=== PATIENT | female | born 1980 | race Caucasian/White ===

== ENCOUNTER 2016-05-29 00:16 | Emergency (ER) | payer BC ==
[2016-05-29 00:30] VITALS: BP 119/67
--- NOTE | 2016-05-29 01:06 | ED ---
Throat Pain/Nasal Congestion - HPI Summary HPI Summary: 35 F present with sore throat for 3 days. She states that she was seen at urgent care yesterday for this same pain and strept throat was negative. She states that today she noticed some white spots on her tonsils. She has taken multiple ibuprofen and tyenlol for the pain and it is not helping. She has tried cough drops and she states that they make the pain more intense. She denies any change in voice or difficulty swallowing. She admits to a dry cough and post nasal drip and nasal congestion. She denies any fever or headache or sinus pressure. She states she felt tonight and last night were her heart skips a beat. It last for a second and resolves. She has been worked up for this in the past and they told her everything was normal she just has anxiety. She denies any chest pain or SOB with the symptoms. - History of Current Complaint Chief Complaint: EDThroatPain Time Seen by Provider: 05/29/16 00:38 - Allergies/Home Medications Allergies/Adverse Reactions: Allergies Allergy/AdvReac Type Severity Reaction Status Date / Time No Known Allergies Allergy Verified 03/15/14 15:10 PMH/Surg Hx/FS Hx/Imm Hx Endocrine/Hematology History: Denies: Hx Anticoagulant Therapy Respiratory History: Reports: Hx Asthma Infectious Disease History: No Infectious Disease History: Denies: Traveled Outside the [place] in Last 30 Days - Family History Known Family History: Positive: Cardiac Disease - Social History Alcohol Use: Occasionally Substance Use Type: Reports: None Smoking Status (MU): Never Smoked Tobacco Review of Systems Negative: Fever Positive: Sore Throat, Nasal Discharge Negative: Chest Pain Negative: Shortness Of Breath Negative: Headache All Other Systems Reviewed And Are Negative: Yes Physical Exam Triage Information Reviewed: Yes Vital Signs On Initial Exam: Initial Vitals Temp Pulse Resp BP Pulse Ox 97.6 F 70 18 119/67 100 05/29/16 00:26 05/29/16 00:26 05/29/16 00:26 05/29/16 00:05/29/16 00:26 Vital Signs Reviewed: Yes Appearance: Positive: Well-Appearing Skin: Positive: Warm, Dry Head/Face: Positive: Normal Head/Face Inspection Eyes: Positive: Normal, EOMI, MARLENE, Conjunctiva Clear ENT: Positive: Pharyngeal erythema, TMs normal. Negative: Tonsillar swelling, Tonsillar exudate, Trismus, Muffled/hoarse voice Neck: Positive: Supple, Nontender, No Lymphadenopathy Respiratory/Lung Sounds: Positive: Clear to Auscultation, Breath Sounds Present Cardiovascular: Positive: Normal, RRR Diagnostics - Vital Signs Vital Signs Temp Pulse Resp BP Pulse Ox 05/29/16 00:26 97.6 F 70 18 119/67 100 - Laboratory Lab Results: Lab Results 05/29/16 Range/Units 00:43 Group A Strep Rapid Negative (Negative) Lab Statement: Any lab studies that have been ordered have been reviewed, and results considered in the medical decision making process. - EKG No standard instances Cardiac Rate: Bradycardia EKG Rhythm: Sinus Rhythm ST Segment: Normal EENT Course/Dx - Course Course Of Treatment: 35 F presents with sore throat for 3 days. seen at urgent care and strept was negative. said saw spots on tonsils I do not appreciate any , repeat strept and it was negative, does not have trimsus, swelling of neck, difficulty swallowing, drooling, or fever, EKG was normal and palpiations resolved discussed likely due to anxiety as had work up for this in the past, discussed adding a narcoctic for pain and patient declined, will add magic mouth wash patient agrees with plan - Differential Diagnoses Differential Diagnoses: Pharyngitis, Sinusitis, URI/Bronchitis - Diagnoses Provider Diagnoses: Pharyngitis, Palpitation Discharge - Discharge Plan Condition: Good Disposition: HOME Prescriptions: Magic Mouth Was-SUJEY/MAAL/LIDO* 5 ml SWISH SPIT QID #100 ml Patient Education Materials: Pharyngitis (ED) Referrals: Annie Kauffman NP [Primary Care Provider] - Additional Instructions: Magic mouthwash can use 4x a day Take Tylenol or ibuprofen for pain Use saline spray in nose as much as needed Use humidifier in room or can use warm water in bowls Can gargle salt water Can use cough drops or products such as cloraseptic spray Follow up with primary care physician if no improvement in 5 days Return to ED if develop fever, inability to swallow, or difficulty breathing or any new or worsening symptoms
[2016-05-29] MEDS ORDERED: oxyCODONE/Acetamin 5/325 MG* TAB PO ONE (01:14)
== END 2016-05-29 01:22 | disposition home or self-care (01) ==
LOC: ED 00:16
DX: J02.9 Acute pharyngitis, unspecified (principal); R00.2 Palpitations
CPT/HCPCS: 87651; 93005; 99282; A9270-GY

== ENCOUNTER 2016-09-07 18:44 | Emergency (ER) | payer BC ==
[2016-09-07] MEDS ORDERED: NS 0.9% 1000 ML* 2,000 ML IV ONE (20:03)
[2016-09-07] MEDS ORDERED: Ondansetron INJ* 2 MG/ML VIAL IV ONE (20:04)
[2016-09-07 20:24] LABS: Hematocrit 43 % (35-47); Hemoglobin 14.3 g/dl (12.0-16.0); Mean Corpuscular HGB Conc 34 g/dl (31-36); Mean Corpuscular Hemoglobin 31 pg (27-31); Mean Corpuscular Volume 91 fL (80-97); Mean Platelet Volume 9 um3 (7.4-10.4); Red Blood Count 4.66 10^6/ul (4.0-5.4); Red Cell Distribution Width 12 % (10.5-15); White Blood Count 10.4 10^3/ul (3.5-10.8)
[2016-09-07 20:27] LABS: Urine Bacteria 1+ (Absent); Urine Bilirubin Negative (Negative); Urine Glucose Negative (Negative); Urine Nitrite Negative (Negative)
[2016-09-07 20:40] LABS: ALT 10 U/L (7-52); AST 15 U/L (13-39); Albumin 4.1 g/dL (3.2-5.2); Alkaline Phosphatase 54 U/L (34-104); Anion Gap 7 mmol/L (2-11); BUN/Creatinine Ratio 9.6 (8-20); Blood Urea Nitrogen 7 mg/dL (6-24); C Reactive Protein 19.54 mg/L (< 5.00); CO2 Carbon Dioxide 23 mmol/L (22-32); Calcium 9.1 mg/dL (8.6-10.3); Chloride 106 mmol/L (101-111); EGFR African American 117.4 (>60); EGFR Non-African American 91.3 (>60); Globulin 2.9 g/dL (2-4); Glucose 94 mg/dL (70-100); Lipase 25 U/L (11.0-82.0); Magnesium 1.8 mg/dL (1.9-2.7); Potassium 3.4 mmol/L (3.5-5.0); Sodium 136 mmol/L (133-145)
--- NOTE | 2016-09-07 21:12 | RAD ---
Indication: Fever. Recent travel to [facility]. Gastric sensitivity, pain, diarrhea. Headache. Dehydration. Comparison: None. Technique: Upright AP 2049 hours Report: Clear lungs and pleural spaces. The heart, pulmonary vasculature, and mediastinal contours are unremarkable. Negative for free air beneath the diaphragm. Unremarkable osseous structures and soft tissue contours. IMPRESSION: No evidence for acute intrathoracic disease.
--- NOTE | 2016-09-07 22:39 | ED ---
Chris Erickson Janilya, scribed for Stefania Pratt MD on 09/07/16 at 2022 . Abdominal Pain/Female - HPI Summary HPI Summary: A 36 y/o female came in to [facility] presenting w/ a gradual onset of constant abd pain for about a week. Pt recently traveled to [facility] from 08/24/2016 to 2016. Since then, pt has been experiencing these Sx. Her abd pain is described as abd cramping. Pt denies this pain at this time. She also reports diarrhea. Pt had one episode of diarrhea today. At most, pt has 3 episodes. Yesterday she got chills and fever. In addition, she reports fatigue, sore throat, runny nose. She took NyQuil last night, however, she did not improve, hence her visit to the ED today. - History of Current Complaint Chief Complaint: EDGeneral Stated Complaint: ABD PAIN/FEVER/WEAKNESS Time Seen by Provider: 09/07/16 20:01 Hx Obtained From: Patient Hx Last Menstrual Period: 02/28/14 Onset/Duration: Gradual Onset, Lasting Days, Still Present Timing: Constant Severity Initially: Moderate Severity Currently: Moderate Pain Intensity: 4 Pain Scale Used: 0-10 Numeric Location: Diffuse Radiates: No Character: Cramping Aggravating Factor(s): Nothing Alleviating Factor(s): Nothing Associated Signs and Symptoms: Positive: Fever, Nausea, Diarrhea Allergies/Adverse Reactions: Allergies Allergy/AdvReac Type Severity Reaction Status Date / Time No Known Allergies Allergy Verified 09/07/16 19:47 PMH/Surg Hx/FS Hx/Imm Hx Previously Healthy: Yes Endocrine/Hematology History: Denies: Hx Anticoagulant Therapy Respiratory History: Reports: Hx Asthma - Immunization History Date of Tetanus Vaccine: utd Date of Influenza Vaccine: none Infectious Disease History: No Infectious Disease History: Reports: Traveled Outside the [place] in Last 30 Days - Family History Known Family History: Positive: Cardiac Disease - Social History Occupation: Employed Full-time Lives: With Family Alcohol Use: Occasionally Substance Use Type: Reports: None Smoking Status (MU): Never Smoked Tobacco Review of Systems Positive: Fever, Chills, Fatigue Positive: Sore Throat, Nasal Discharge Positive: Abdominal Pain, Diarrhea Positive: Headache All Other Systems Reviewed And Are Negative: Yes Physical Exam Triage Information Reviewed: Yes Vital Signs On Initial Exam: Initial Vitals Temp Pulse Resp BP Pulse Ox 98.8 F 110 20 107/71 100 09/07/16 18:55 09/07/16 18:55 09/07/16 18:55 09/07/16 18:55 09/07/16 18:55 Vital Signs Reviewed: Yes Appearance: Positive: Well-Appearing, No Pain Distress Skin: Positive: Warm, Skin Color Reflects Adequate Perfusion Eyes: Positive: EOMI, MARLENE ENT: Positive: Pharynx normal, Nasal drainage, TMs normal Neck: Positive: Supple, Nontender Respiratory/Lung Sounds: Positive: Clear to Auscultation, Breath Sounds Present. Negative: Rales, Rhonchi, Wheezes Cardiovascular: Positive: RRR, Pulses are Symmetrical in both Upper and Lower Extremities. Negative: Murmur, Rub, Other - no gallops Abdomen Description: Positive: Nontender, Soft. Negative: Distended, Guarding, Other: - no rebound Bowel Sounds: Positive: Present Musculoskeletal: Positive: Strength/ROM Intact. Negative: Edema Left, Edema Right Neurological: Positive: Sensory/Motor Intact, Alert, Oriented to Person Place, Time, CN Intact II-III Psychiatric: Positive: Affect/Mood Appropriate - Zeny Coma Scale Coma Scale Total: 15 Diagnostics - Vital Signs Vital Signs Temp Pulse Resp BP Pulse Ox 09/07/16 19:41 99.0 F 87 14 98/53 99 09/07/16 18:55 98.8 F 110 20 107/71 100 - Laboratory Lab Results: Lab Results 09/07/16 09/07/16 09/07/16 Range/Units 20:10 20:10 20:10 WBC 10.4 (3.5-10.8) 10^3/ul RBC 4.66 (4.0-5.4) 10^6/ul Hgb 14.3 (12.0-16.0) g/dl Hct 43 (35-47) % MCV 91 (80-97) fL MCH 31 (27-31) pg MCHC 34 (31-36) g/dl RDW 12 (10.5-15) % Plt Count 212 (150-450) 10^3/ul MPV 9 (7.4-10.4) um3 Neut % (Auto) 81.1 (38-83) % Lymph % (Auto) 7.2 L (25-47) % Wright % (Auto) 10.1 H (1-9) % Eos % (Auto) 1.0 (0-6) % Baso % (Auto) 0.6 (0-2) % Absolute Neuts (auto) 8.4 H (1.5-7.7) 10^3/ul Absolute Lymphs (auto) 0.7 L (1.0-4.8) 10^3/ul Absolute Monos (auto) 1.1 H (0-0.8) 10^3/ul Absolute Eos (auto) 0.1 (0-0.6) 10^3/ul Absolute Basos (auto) 0.1 (0-0.2) 10^3/ul Absolute Nucleated RBC 0.01 10^3/ul Nucleated RBC % 0 Sodium 136 (133-145) mmol/L Potassium 3.4 L (3.5-5.0) mmol/L Chloride 106 (101-111) mmol/L Carbon Dioxide 23 (22-32) mmol/L Anion Gap 7 (2-11) mmol/L BUN 7 (6-24) mg/dL Creatinine 0.73 (0.51-0.95) mg/dL Est GFR ( Amer) 117.4 (>60) Est GFR (Non-Af Amer) 91.3 (>60) BUN/Creatinine Ratio 9.6 (8-20) Glucose 94 (70-100) mg/dL Lactic Acid (0.5-2.0) mmol/L Calcium 9.1 (8.6-10.3) mg/dL Magnesium 1.8 L (1.9-2.7) mg/dL Total Bilirubin 0.60 (0.2-1.0) mg/dL AST 15 (13-39) U/L ALT 10 (7-52) U/L Alkaline Phosphatase 54 (34-104) U/L C-Reactive Protein 19.54 H (< 5.00) mg/L Total Protein 7.0 (6.4-8.9) g/dL Albumin 4.1 (3.2-5.2) g/dL Globulin 2.9 (2-4) g/dL Albumin/Globulin Ratio 1.4 (1-3) Lipase 25 (11.0-82.0) U/L Beta HCG, Quant < 0.60 mIU/mL Urine Color Yellow Urine Appearance Clear Urine pH 6.0 (5-9) Ur Specific [place] 1.009 L (1.010-1.030) Urine Protein Negative (Negative) Urine Ketones Negative (Negative) Urine Blood 3+ H (Negative) Urine Nitrate Negative (Negative) Urine Bilirubin Negative (Negative) Urine Urobilinogen Negative (Negative) Ur Leukocyte Esterase Trace H (Negative) Urine WBC (Auto) Trace(0-5/hpf) (Absent) Urine RBC (Auto) Trace(0-2/hpf) (Absent) Ur Squamous Epith Cells Present H (Absent) Urine Bacteria 1+ H (Absent) Urine Glucose Negative (Negative) Influenza A (Rapid) (Negative) Influenza B (Rapid) (Negative) 09/07/16 09/07/16 Range/Units 20:10 21:24 WBC (3.5-10.8) 10^3/ul RBC (4.0-5.4) 10^6/ul Hgb (12.0-16.0) g/dl Hct (35-47) % MCV (80-97) fL MCH (27-31) pg MCHC (31-36) g/dl RDW (10.5-15) % Plt Count (150-450) 10^3/ul MPV (7.4-10.4) um3 Neut % (Auto) (38-83) % Lymph % (Auto) (25-47) % Wright % (Auto) (1-9) % Eos % (Auto) (0-6) % Baso % (Auto) (0-2) % Absolute Neuts (auto) (1.5-7.7) 10^3/ul Absolute Lymphs (auto) (1.0-4.8) 10^3/ul Absolute Monos (auto) (0-0.8) 10^3/ul Absolute Eos (auto) (0-0.6) 10^3/ul Absolute Basos (auto) (0-0.2) 10^3/ul Absolute Nucleated RBC 10^3/ul Nucleated RBC % Sodium (133-145) mmol/L Potassium (3.5-5.0) mmol/L Chloride (101-111) mmol/L Carbon Dioxide (22-32) mmol/L Anion Gap (2-11) mmol/L BUN (6-24) mg/dL Creatinine (0.51-0.95) mg/dL Est GFR ( Amer) (>60) Est GFR (Non-Af Amer) (>60) BUN/Creatinine Ratio (8-20) Glucose (70-100) mg/dL Lactic Acid 0.7 (0.5-2.0) mmol/L Calcium (8.6-10.3) mg/dL Magnesium (1.9-2.7) mg/dL Total Bilirubin (0.2-1.0) mg/dL AST (13-39) U/L ALT (7-52) U/L Alkaline Phosphatase (34-104) U/L C-Reactive Protein (< 5.00) mg/L Total Protein (6.4-8.9) g/dL Albumin (3.2-5.2) g/dL Globulin (2-4) g/dL Albumin/Globulin Ratio (1-3) Lipase (11.0-82.0) U/L Beta HCG, Quant mIU/mL Urine Color Urine Appearance Urine pH (5-9) Ur Specific [place] (1.010-1.030) Urine Protein (Negative) Urine Ketones (Negative) Urine Blood (Negative) Urine Nitrate (Negative) Urine Bilirubin (Negative) Urine Urobilinogen (Negative) Ur Leukocyte Esterase (Negative) Urine WBC (Auto) (Absent) Urine RBC (Auto) (Absent) Ur Squamous Epith Cells (Absent) Urine Bacteria (Absent) Urine Glucose (Negative) Influenza A (Rapid) Negative (Negative) Influenza B (Rapid) Negative (Negative) Result Diagrams: 09/07/16 20:10 09/07/16 20:10 Lab Statement: Any lab studies that have been ordered have been reviewed, and results considered in the medical decision making process. Re-Evaluation - Re-Evaluation First Eval Re-Evaluation Time: 22:20 Change: Improved Second Eval Re-Evaluation Time: 22:35 Change: Improved Abdominal Pain Fem Course/Dx - Course Course Of Treatment: A 36 y/o female came in to [facility] presenting w/ a gradual onset of constant abd pain for about a week. Pt recently traveled to [facility] from 08/24/2016 to 09/01/2016. Since then, pt has been experiencing these Sx. Her abd pain is described as abd cramping. Pt denies this pain at this time. She also reports diarrhea. Pt had one episode of diarrhea today. At most, pt has 3 episodes. Yesterday she got chills and fever. In addition, she reports fatigue, sore throat, runny nose. She took NyQuil last night, however, she did not improve, hence her visit to the ED today. In ED course, pt had normal saline 1L *2L. labs look essentially normal, gave pt 3days of azithro for her travelers diarrhea, her abd pain is better but she is not eating. her other symptoms seem like a separate uri, did consult [employer] website for [place] and the following illnesses did not fit (zika, hepa, chikungunya and typhoid) - Diagnoses Provider Diagnoses: Dysentery upper respiratory infection Discharge - Discharge Plan Condition: Stable Disposition: HOME Prescriptions: Azithromycin [Azithromycin 500 MG TAB] 500 mg PO DAILY #3 tab Patient Education Materials: Upper Respiratory Infection (ED) Referrals: Annie Kauffman [employer]ER [Primary Care Provider] - 2 Days The documentation as recorded by the Ch[facility] live Janilya accurately reflects the service I personally performed and the decisions made by me, Stefania Pratt MD.
[2016-09-07 23:13] VITALS: BP 97/66
== END 2016-09-07 23:00 | disposition home or self-care (01) ==
LOC: ED 18:44
DX: A09 Infectious gastroenteritis and colitis, unspecified (principal); J06.9 Acute upper respiratory infection, unspecified; R53.1 Weakness; R50.9 Fever, unspecified; J02.9 Acute pharyngitis, unspecified; R10.9 Unspecified abdominal pain; R51 Headache
CPT/HCPCS: 36415; 71010; 80053; 81003; 81015; 83605; 83690; 83735; 84702; 85025; 86140; 87086; 87502; 96374; 99283; J2405